=== PATIENT | female | born 1940 | race Caucasian/White ===

== ENCOUNTER → 2023-06-18 08:12 | Outpatient (REF) | payer MEDICARE, SELFPAY | LOC: RAD 08:12 | PROVIDERS: ATTENDING PHYSICIAN Family Medicine | DX: M81.0 Age-related osteoporosis without current pathological fracture (principal) | CPT/HCPCS: 77080 ==

== ENCOUNTER → 2023-07-17 09:34 | Outpatient (REF) | payer MEDICARE, SELFPAY ==
[2023-07-17 10:41] LABS: % Basophils 0.7 % (0-2); % Immature Granulocytes 0.2 % (0-0.5); % Lymphocytes 32.3 % (20.5-51.1); % Monocytes 7.6 % (1.7-9.3); % Neutrophils 58.2 % (42.2-75.2); Absolute Lymphocytes 1.4 10^3/uL (1.2-3.4); Absolute Monocytes 0.3 10^3/uL (0.1-0.6); Absolute Neutrophils 2.5 10^3/uL (1.4-6.5); Hematocrit 36.4 % (37.0-47.0); Hemoglobin 12.3 g/dL (12.0-16.0); Mean Corp Hgb Conc. 33.8 g/dL (33.0-37.0); Mean Corpuscular Hgb 30.8 pg (27.0-31.0); Mean Platelet Volume 10.9 fL (7.4-10.4); Nucleated Red Blood Cells % 0 %; Platelet Count 177 10^3/uL (130-400); Red Cell Dist. Width 12.9 % (11.5-14.5); White Blood Cell Count 4.2 10^3/uL (4.8-10.8)
[2023-07-17 11:26] LABS: Vitamin D, 25-OH*** 64.9 ng/mL (30-80)
[2023-07-17 11:40] LABS: TSH 1.84 uIU/ml (0.47-4.68)
[2023-07-17 12:06] LABS: ALT (SGPT) 15 U/L (0-35); AST (SGOT) 27 U/L (14-36); Albumin 4.3 g/dl (3.5-5.0); Alkaline Phosphatase 88 U/L (38-126); Blood Urea Nitrogen 16 mg/dl (7-17); Calcium 9.6 mg/dl (8.4-10.2); Carbon Dioxide 31 mmol/L (22-30); Chloride 99 mmol/L (98-107); Creatine Phosphokinase 113 U/L (30-135); Glucose 97 mg/dl (70-99); Magnesium 2.1 mg/dl (1.6-2.3); Potassium 4.6 mmol/L (3.5-5.1); Sodium 135 mmol/L (135-145); Total Bilirubin 0.5 mg/dl (0.2-1.3); Total Cholesterol 144 mg/dl (50-199); Total Protein 7.1 g/dl (6.3-8.2); Triglyceride 103 mg/dl (10-149); Very Low Density Lipoprotein 20 mg/dl (0-30); eGFR > 60.00
[2023-07-17 12:12] LABS: HDL Cholesterol 61 mg/dl; LDL Cholesterol, Calculated 63 mg/dl
== END ==
LOC: REG 09:34
PROVIDERS: ATTENDING PHYSICIAN Family Medicine
DX: M81.0 Age-related osteoporosis without current pathological fracture (principal); R53.83 Other fatigue; E78.2 Mixed hyperlipidemia; I10 Essential (primary) hypertension; R53.1 Weakness
CPT/HCPCS: 36415; 80053; 80061; 82306; 82550; 83735; 84443; 85025

== ENCOUNTER → 2023-07-23 09:13 | Outpatient (REF) | payer MEDICARE, SELFPAY | LOC: CLAB 09:13 | PROVIDERS: ATTENDING PHYSICIAN Nurse Practitioner Family | DX: R35.0 Frequency of micturition (principal) | CPT/HCPCS: 87077; 87086; 87186 ==

== ENCOUNTER 2023-08-05 11:21 | Outpatient (RCR) | payer MEDICARE, SELFPAY | END 2023-08-05 23:59 | disposition home or self-care (01) | LOC: RPT 11:21 | PROVIDERS: ATTENDING PHYSICIAN Family Medicine | DX: M17.11 Unilateral primary osteoarthritis, right knee (principal); R53.81 Other malaise; R26.89 Other abnormalities of gait and mobility; R26.2 Difficulty in walking, not elsewhere classified; Z73.6 Limitation of activities due to disability | CPT/HCPCS: 97110; 97162 ==

== ENCOUNTER 2023-09-22 13:48 | Outpatient (RCR) | payer MEDICARE, SELFPAY | END 2023-09-22 23:59 | disposition home or self-care (01) | LOC: RPT 13:48 | PROVIDERS: ATTENDING PHYSICIAN Orthopaedic Surgery; FAMILY PHYSICIAN Family Medicine | DX: M17.11 Unilateral primary osteoarthritis, right knee (principal); R26.89 Other abnormalities of gait and mobility | CPT/HCPCS: 97110; 97162 ==

== ENCOUNTER 2023-10-23 10:07 | Outpatient (RCR) | payer MEDICARE, SELFPAY | END 2023-10-26 06:28 | disposition home or self-care (01) | LOC: RPT 10:07 | PROVIDERS: ATTENDING PHYSICIAN Orthopaedic Surgery; FAMILY PHYSICIAN Family Medicine | DX: M17.11 Unilateral primary osteoarthritis, right knee (principal); R26.89 Other abnormalities of gait and mobility | CPT/HCPCS: 97110 ==

== ENCOUNTER 2023-12-07 12:27 | Emergency (ER) | payer MEDICARE, SELFPAY ==
[2023-12-07 12:34] VITALS: BP 174/149
[2023-12-07 12:50] VITALS: BP 174/149
[2023-12-07 12:54] VITALS: BMI 28.7
[2023-12-07 13:00] VITALS: BP 169/72
[2023-12-07] MEDS: NSS 1000 IV (13:48)
[2023-12-07 13:52] LABS: % Basophils 0.5 % (0-2); % Eosinophils 0.9 % (0-6); % Immature Granulocytes 0.2 % (0-0.5); % Monocytes 7.4 % (1.7-9.3); Absolute Eosinophils 0.1 10^3/uL (0-0.7); Absolute Lymphocytes 1.6 10^3/uL (1.2-3.4); Absolute Monocytes 0.4 10^3/uL (0.1-0.6); Absolute Neutrophils 3.4 10^3/uL (1.4-6.5); Hematocrit 35.4 % (37.0-47.0); Hemoglobin 11.8 g/dL (12.0-16.0); Mean Corp Hgb Conc. 33.3 g/dL (33.0-37.0); Mean Corpuscular Hgb 31.1 pg (27.0-31.0); Mean Corpuscular Volume 93.2 fL (81.0-99.0); Mean Platelet Volume 10.8 fL (7.4-10.4); Nucleated Red Blood Cells % 0 %; Platelet Count 154 10^3/uL (130-400); Red Cell Dist. Width 12.5 % (11.5-14.5); White Blood Cell Count 5.6 10^3/uL (4.8-10.8)
--- NOTE | 2023-12-07 13:52 | ED.CVA ---
History of Present Illness
General
Chief Complaint: CVA/TIA Symptoms
Time Seen by Provider: 12/07/23 12:45
Onset of Stroke Symptoms
Onset of symptoms known: Yes
Date of onset of symptoms: 12/07/23
History of Present Illness
History of Present Illness:
83-year-old female with history of CVA 12 years ago and TIA 5 years ago, hypertension, presenting to the emergency department for strokelike symptoms. Patient reports that she was at physical therapy today for a right knee issue. When she got home
around 11 AM, felt dizzy and had word finding issues. Patient had a freelance interpreter/translator at the house at the time, ambulance was called. Symptoms have since resolved. She currently reports some dry mouth and concern for dehydration, which she is unsure if
contributed to her symptoms. Denies any present weakness, visual changes, numbness or tingling to her extremities. Daughter is at bedside, notes that her speech is normal. She denies chest pain, difficulty breathing, fever, abdominal pain or GI
symptoms or additional acute medical complaints
Past History
Past History
ED Past Medical History: HTN, Hypercholesterolemia, NIDDM, Psychiatric (Major depressive disorder, generalized anxiety disorder) and Other (BPPV, migraine, osteoarthritis, Allergic rhinitis, non-rheumatic aortic valve insufficiency)
ED Past Surgical History: Orthopedic (Left knee arthroscopy, right shoulder adhesion removal) and Tonsilectomy
Social History
Tobacco: Non-smoker
Alcohol: Occasional
Personal:
Living: with family
Employment: Other
Family History
Family History: Other (Reviewed and noncontributory)
Phy Exam
Physical Exam
Physical Exam:
General: Well-appearing, no clinical signs of dehydration, nontoxic and in no acute distress
HEENT: protecting airway
Neck: appears supple
CV: Normal heart rate, regular rhythm, no evidence of cyanosis
Resp: No accessory muscle use, no increased work of breathing, lungs clear to auscultation bilaterally
Abd: Soft and non-distended, no tenderness to palpation
Extremities: No deformities, no swelling, no erythema, pulses and sensation intact
Neuro: alert, no focal neurologic deficit
: deferred
Rectal: deferred
Psych: Normal affect
Skin: Intact
NIH Stroke Score
Level of Consciousness: 0 - Alert
LOC questions: 0-Answers both correctly
LOC Commands: 0-Performs both correctly
Best Gaze: 0-Normal
Visual Hu: 0=Normal, no visual loss
Facial palsy: 0=Normal, symmetrical
Motor - Right Arm: 0=No drift 10 seconds
Motor - Left Arm: 0=No drift 10 seconds
Motor - Right Le-No drift 5 seconds
Motor - Left Le-No drift 5 seconds
Limb Ataxia: 0-Absent
Sensation: 0-Normal
Best Language: 0-No aphasia
Dysarthria: 0-Normal
Extinction and Inattention: 0-No abnormality
Total Score:: 0
Course
Orders/Labs/Results
Orders:
Orders
12/07/23 13:04
0.9% Sodium Chloride 1000 ml [Nss] 1,000 ml IV BOLUS
12/07/23 13:05
CT Head W/o Iv Contrast Urgent
Comment:
Reason For Exam: word finding issue at 11, resolved
12/07/23 13:44
Cardiovascular Evaluation Urgent
Comment: ADD ON
Complete Blood Count/With Diff Urgent
Comprehensive Metabolic Panel Urgent
12/07/23 14:20
CT Head & Neck Angio W/wo IV Urgent
Comment:
Reason For Exam: word finding issue
Orthostatic VS- Treatment ONCE
12/07/23 14:28
Add On- LAB Stat
Tests Added?: Lipid profile
12/07/23 14:34
Urinalysis Reflex To Culture Urgent
Date Specimen was Collected: 12/07/23
Time Specimen was Collected: 14:32
Urine Microscopic Reflex Cult Urgent
Urine Culture Urgent
GALLITO Source: U
Specimen Description:
Date Specimen was Collected: 12/07/23
Time Specimen was Collected: 14:32
12/07/23 15:18
Acetaminophen [Tylenol] 1,000 mg PO NOW STA
Abnormal Lab Results
12/07/23 12/07/23
13:44 14:34
RBC 3.80 L 10^6/uL
(4.20-5.40)
Hgb 11.8 L g/dL
(12.0-16.0)
Hct 35.4 L %
(37.0-47.0)
MCH 31.1 H pg
(27.0-31.0)
MPV 10.8 H fL
(7.4-10.4)
Chloride 97 L mmol/L
(98-107)
Glucose 102 H mg/dl
(70-99)
Leukocyte Esterase Rfl 1+ A
(Negative)
12/07/23 13:44
12/07/23 13:44
Vital Signs
Initial and Last Documented VS:
Initial Vital Signs
Pulse Resp Pulse Ox
65 19 99
12/07/23 12:31 12/07/23 12:31 12/07/23 12:31
Last Documented Vital Signs
Temp Pulse Resp BP Pulse Ox
98.3 F 64 17 173/63 96
12/07/23 12:50 12/07/23 14:15 12/07/23 14:15 12/07/23 14:00 12/07/23 14:15
MDM/Problems Addressed
MDM/Problems Addressed:
83-year-old female with history of prior CVA and TIA presenting to the emergency department for strokelike symptoms. Vital signs on arrival are significant for hypertension.
On exam patient is well-appearing, no acute distress or discomfort. Notes that symptoms started 11 AM, however resolved upon arrival to the hospital. NIH stroke scale is currently 0. Suspected TIA. Will administer IV fluids in the setting of
possible dehydration. Will obtain a CT brain and laboratory analysis and continue to closely observe.
14:00 - CT negative. Will discuss with neurology
14:30 -in discussion with neurology, recommending lipid profile, orthostatics, CT angio and starting on Plavix. Will obtain
17:20 - CT angio shows less than 50% stenosis of the right internal carotid artery less than 50% stenosis bilaterally. In discussion with neurology, not significant. Patient remained stable, feel stable for discharge with close interval follow-up
neurology. Will start on Plavix per neurology recommendations. Also advised follow-up with PCP regarding blood pressure management. Strict return precautions were communicated with patient and daughters at bedside who verbalized understanding
*Critical Care Note
Total Time (30-74mins, 75-104mins- exclusive of procedures): Not Applicable
ED Attending Note
-
Portions of this chart may have been created with voice recognition software.� Occasional wrong word or��sound alike� substitutions may have occurred due to the inherent limitations of voice recognition software.
Discharge Plan
Departure
Patient Disposition: Home (Routine Discharge)
Date of Disposition: 12/07/23
Time of Disposition: 17:28
Patient with high blood pressure during this ER visit?: Yes
Condition: Good
Discharge Problem:
TIA (transient ischemic attack)
Instructions: Transient Ischemic Attack (DC), BLOOD PRESSURE, Hypertention
Prescriptions:
New
clopidogrel [Plavix] 75 mg tablet
75 mg PO DAILY 30 Days Qty: 30 0RF
No Action
amlodipine 2.5 MG tablet
2.5 mg PO DAILY
aspirin 81 MG tablet,delayed release (DR/EC)
81 mg PO DAILY Qty: 30 0RF
metoprolol succinate 100 mg Tablet Extended Release 24 Hr
100 mg PO DAILY
citalopram 20 mg Tablet
20 mg PO DAILY
calcium polycarbophil [FiberCon] 625 mg Tablet
1,250 mg PO DAILY
lisinopril 40 mg Tablet
40 mg PO DAILY
fluticasone propionate [Flonase] 50 mcg/actuation [place],Suspension
1 spray INTRANASAL DAILY PRN (Reason: congestion)
rosuvastatin 20 mg Tablet
20 mg PO DAILY
calcium carbonate-vitamin D3 [Calcium 500 With D] 500 mg-10 mcg (400 unit) Tablet
1 tab PO DAILY
cholecalciferol (vitamin D3) [Vitamin D3] 50 mcg (2,000 unit) Capsule
50 mcg PO DAILY
mecobalamin (vitamin B12) [B12 Active] 1,000 mcg Tablet,Chewable
1,000 mcg PO DAILY
Gemtesa 75 mg Tablet
75 mg PO DAILY
mupirocin 2 % Ointment
1 applic TOPICAL BID
acetaminophen 500 mg Tablet
1,000 mg PO Q6H PRN (Reason: pain)
aspirin 325 mg Tablet
325 mg PO DAILY
Patient Comments:
*
ondansetron HCl [Zofran] 4 mg Tablet
4 mg PO Q6H PRN (Reason: post-op nausea)
Patient Comments:
*
dexamethasone 4 mg Tablet
4 mg PO Q12H
Patient Comments:
*
celecoxib 100 mg Capsule
100 mg PO BID
Patient Comments:
*
oxycodone 5 mg Tablet
5 - 10 mg PO Q6H PRN (Reason: post-op pain)
Patient Comments:
*
Referrals:
Lindsey Mars MD [Family Provider] -
Kevin Bush III, MD [Active] - (carotid stenosis)
Nabeel Sher MD [Active] - (TIA)
Activity Restrictions/Additional Instructions:
You were seen in the emergency department for episode of difficulty speaking which is since resolved.
Had a normal CT of your brain and arteries of your brain and neck. There was some stenosis to your carotids. Please follow-up with the vascular surgeon. We suspect that you had a transient ischemic attack, and should follow-up with a neurologist.
You were started on Plavix
Please follow-up closely with your primary care physician regarding your blood pressure, which has been elevated in the emergency.
Return to the emergency department for any worsening of your symptoms, or any development of chest pain, difficulty breathing, abdominal pain with persistent vomiting and inability to tolerate food or liquid by mouth (concern for dehydration),
weakness or numbness to your extremities, headache or confusion, difficulty speaking, fever greater than 100.4, or any additional symptoms that are concerning to you.
Thank you for choosing [facility].
Interventions
Interventions:
*Risk Screen - Suicide Last Done: 12/07/23 12:55
*General Assessment Last Done: 12/07/23 12:56
*Neglect/Abuse Screening Last Done: 12/07/23 12:55
*Nursing Disposition Last Done: 12/07/23 18:04
ED- Pulmonary Assessment Last Done: 12/07/23 12:54
ED- Neurological Assessment Last Done: 12/07/23 12:52
ED- Cardiac Assessment Last Done: 12/07/23 12:54
ED Swallowing Screen Last Done: 12/07/23 12:52
Discharge Date and Time
Discharge Date/Time: 12/07/23 18:05
Print Language: TURKMEN
[2023-12-07 14:00] VITALS: BP 173/63
[2023-12-07 14:16] LABS: ALT (SGPT) 13 U/L (0-35); AST (SGOT) 27 U/L (14-36); Albumin 4.4 g/dl (3.5-5.0); Alkaline Phosphatase 81 U/L (38-126); Blood Urea Nitrogen 17 mg/dl (7-17); Calcium 9.3 mg/dl (8.4-10.2); Carbon Dioxide 27 mmol/L (22-30); Chloride 97 mmol/L (98-107); Estimated Creatinine Clearance 69 ml/min; Glucose 102 mg/dl (70-99); Potassium 4.3 mmol/L (3.5-5.1); Sodium 135 mmol/L (135-145); Total Bilirubin 0.5 mg/dl (0.2-1.3); Total Protein 6.8 g/dl (6.3-8.2); eGFR > 60.00
[2023-12-07 14:43] LABS: HDL Cholesterol 50 mg/dl; LDL Cholesterol, Calculated 67 mg/dl; Total Cholesterol 140 mg/dl (50-199); Triglyceride 116 mg/dl (10-149); Very Low Density Lipoprotein 23 mg/dl (0-30)
[2023-12-07 15:16] LABS: Urine Albumin Negative (Neg - Trace); Urine Bilirubin Negative (Negative); Urine Character Clear (Clear); Urine Color Yellow; Urine Glucose Negative (Negative); Urine Ketone Negative (Negative); Urine Leukocyte 1+ (Negative); Urine Nitrite Negative (Negative); Urine Occult Blood Negative (Negative); Urine Urobilinogen Negative (Neg - 1+)
[2023-12-07 15:19] VITALS: BP 188/57; BP 190/67; BP 196/74; PULSE 66; PULSE 67; PULSE 80
[2023-12-07] MEDS: TYLENOL 1000 MG PO (15:24)
[2023-12-07 15:32] LABS: Urine Red Blood Cell 0-2 /HPF (0-2)
== END 2023-12-07 18:05 | disposition home or self-care (01) ==
LOC: EMR 12:27
PROVIDERS: EMERGENCY PHYSICIAN Student in an Organized Health Care Education/Training Program; FAMILY PHYSICIAN Family Medicine
DX: G45.9 Transient cerebral ischemic attack, unspecified (principal); I10 Essential (primary) hypertension; E78.00 Pure hypercholesterolemia, unspecified; E11.9 Type 2 diabetes mellitus without complications; F41.8 Other specified anxiety disorders; I35.1 Nonrheumatic aortic (valve) insufficiency; M19.90 Unspecified osteoarthritis, unspecified site; Z79.02 Long term (current) use of antithrombotics/antiplatelets
CPT/HCPCS: 99284; 96360; 70450; 70496; 70498; 80053; 80061; 81003; 81015; 85025; 87086; Q9967

== ENCOUNTER 2023-12-10 00:28 | Emergency (ER) | payer MEDICARE, SELFPAY ==
[2023-12-10 00:33] VITALS: BP 181/62
[2023-12-10 00:42] VITALS: BMI 27.5
--- NOTE | 2023-12-10 00:47 | ED.GENMED ---
History of Present Illness
General
Chief Complaint: Dizziness
Source: patient, family (son Rafita) and ambulance crew
Exam Limitations: none
Time Seen by Provider: 12/10/23 00:38
Nursing documentation reviewed up to this point in time: agreed with
History of Present Illness
History of Present Illness:
83-year-old female presents emergency department complaining of intermittent dizziness. On Thursday she was diagnosed with TIA. She was started on Plavix and aspirin was continued. Her dizziness is intermittent. It started at 1130. She denies
symptoms at this time.
Past History
Past History
ED Past Medical History: HTN, Hypercholesterolemia, NIDDM, Psychiatric (Major depressive disorder, generalized anxiety disorder) and Other (BPPV, migraine, osteoarthritis, Allergic rhinitis, non-rheumatic aortic valve insufficiency)
ED Past Surgical History: Orthopedic (Left knee arthroscopy, right shoulder adhesion removal) and Tonsilectomy
Social History
Tobacco: Non-smoker
Alcohol: Occasional
Personal:
Living: with family
Employment: Other
Family History
Family History: Other (Reviewed and noncontributory)
Review of Systems
Review of Systems
Allergies reviewed?: Yes
All Other Systems: Not applicable
Constitutional: Reports no symptoms
EENT: Reports no symptoms
Respiratory: Reports no symptoms
Cardiac: Reports no symptoms
ABD/GI: Reports no symptoms
: Reports no symptoms
Musculoskeletal: Reports no symptoms
Skin: Reports no symptoms
Neurological: Reports dizzy
Endocrine: Reports no symptoms
Hematologic/Lymphatic: Reports no symptoms
Psychiatric: Reports no symptoms
Phy Exam
Physical Exam
Physical Exam:
Physical Exam
General: no apparent distress, not acutely ill
Neck: supple. no meningeal signs. normal posterior pharynx
Heart: s1/s2 regular rate and rhythm, no murmur. equal radial
pulses.
HEENT: Pupils equal round reactive to light, EOMI
Lungs: no acute respiratory distress. clear bilaterally
Abdomen: normal bowel sounds. not tender. no CVAT
Neuro: alert and oriented. no focal neurological deficits cranial nerves II through XII intact
Skin: no rash
Psychiatric: well kept. interactive and cooperative
Extremities: no edema. no calf tenderness. negative homans. good distal pulses
NIH Stroke Score
Level of Consciousness: 0 - Alert
LOC questions: 0-Answers both correctly
LOC Commands: 0-Performs both correctly
Best Gaze: 0-Normal
Visual Hu: 0=Normal, no visual loss
Facial palsy: 0=Normal, symmetrical
Motor - Right Arm: 0=No drift 10 seconds
Motor - Left Arm: 0=No drift 10 seconds
Motor - Right Le-No drift 5 seconds
Motor - Left Le-No drift 5 seconds
Limb Ataxia: 0-Absent
Sensation: 0-Normal
Best Language: 0-No aphasia
Dysarthria: 0-Normal
Extinction and Inattention: 0-No abnormality
Total Score:: 0
Alteplase Contraindication
Reasons for NON-Treatment with Thrombolytics: Rapid improvement and Other (NIH 0)
[place] Coma Scale
Eye Opening: Spontaneous
Verbal Response: Oriented
Motor Response: Obeys Commands
GCS Total Score: 15
Scores
NIH Stroke Score
Level of Consciousness: 0 - Alert
LOC Questions: 0-Answers both correctly
LOC Commands: 0-Performs both correctly
Best Horizontal Gaze: 0-Normal
Visual Hu: 0=Normal, no visual loss
Facial Palsy: 0=Normal, symmetrical
Motor - Right Arm: 0=No drift 10 seconds
Motor - Left Arm: 0=No drift 10 seconds
Motor - Right Le-No drift 5 seconds
Motor - Left Le-No drift 5 seconds
Limb Ataxia: 0-Absent
Sensation: 0-Normal
Best Language: 0-No aphasia
Dysarthria: 0-Normal
Extinction and Inattention: 0-No abnormality
Total Score:: 0
Thrombolytic Contraindication
Inclusion and Exclusion criteria reviewed: Yes
Reasons for NON-Tx with Thrombolytics ABSOLUTE Exclusions: Greater than 4.5 hrs from onset of sxs
Course
Orders/Labs/Results
Orders:
Orders
12/10/23 00:29
Electrocardiogram (*1) Urgent
Reason for Study: Other
Other Reason for Exam: Possible Stroke
Bedside Glucose- Treatment ONCE
Cardiac Monitoring- Treatment ONCE
IV Insert/Care/Rem.- Treatment PRN
Vital Signs As Directed
Frequency: Other
Weight As Directed
Frequency: Once
Comment: ZERO STRETCHER SCALE FOR ACCURATE WEIGHT
O2 Therapy [RESP] Urgent
Titrate/Wean O2 to maintain O2 sat greater than (%): 93
Special Instructions: MAINTAIN CONTINUOUS O2 SATS > OR = 93%
12/10/23 00:30
EKG- Treatment ONCE
12/10/23 00:40
Complete Blood Count/With Diff Urgent
Comprehensive Metabolic Panel Urgent
Troponin I Urgent
12/10/23 00:46
CT Head W/o Iv Contrast Urgent
Comment:
Reason For Exam: dizziness
EKG- Treatment ONCE
12/10/23 00:47
Electrocardiogram (*1) Urgent
Reason for Study: Vertigo / Dizzy
Abnormal Lab Results
12/10/23 12/10/23
00:40 00:47
RBC 3.72 L 10^6/uL
(4.20-5.40)
Hgb 11.2 L g/dL
(12.0-16.0)
Hct 32.5 L %
(37.0-47.0)
MPV 11.3 H fL
(7.4-10.4)
BUN 24 H mg/dl
(7-17)
Glucose 106 H mg/dl
(70-99)
POC Glucose 114 H mg/dl
(70-99)
12/10/23 00:40
12/10/23 00:40
Vital Signs
Initial and Last Documented VS:
Initial Vital Signs
Temp Pulse Resp Pulse Ox
98.4 F 67 19 96
12/10/23 00:30 12/10/23 00:30 12/10/23 00:30 12/10/23 00:30
Last Documented Vital Signs
Temp Pulse Resp BP Pulse Ox
98.4 F 74 22 170/61 98
12/10/23 00:30 12/10/23 01:05 12/10/23 01:05 12/10/23 01:04 12/10/23 01:05
MDM/Problems Addressed
Differential Diagnosis Includes:
CVA, TIA
MDM/Problems Addressed:
83-year-old female with intermittent dizziness, unclear etiology. Doubt CVA. No neurologic deficits. Stable for discharge and primary care and neurology follow-up
Chronic conditions affecting care: HTN and Cardiomyopathy
Acute Exacerbation and/or Progression of Chronic Illness: HTN and Cardiomyopathy
*Radiology
Radiology exam reviewed: radiology read reviewed (CT head no acute findings)
*Pulse Oximetry
Patient hypoxic: no
*EKG
Interpreted by ED Provider?: Yes
EKG Intrepretation Date: 12/10/23
EKG Intrepretation Time: 00:52
Interpretation: normal
Comparison EKG: no changes
Heart Rate: 66
Rate: normal
Rhythm: sinus
[place]: normal axis
Interval: normal interval
QRS Pattern: normal QRS
Ischemia: no ischemia
*Casing In Line Feeder Interpretation
Rate: normal
Interpretation: normal
Heart Rate: 62
Rhythm: sinus
*Critical Care Note
Total Time (30-74mins, 75-104mins- exclusive of procedures): Not Applicable
Data Reviewed
Review of Other/Old Records Reveals: Radiology Studies (CTA from recent evaluation no acute findings on 12/07/2023)
Source: records and previous radiology exam
Prescriptions/Medications Considered But Not Given:
IAT and TNK not indicated
Patient Management
Social determinants of health affecting care: Living situation
Escalation/DeEscalation of care consider admission/obs:
Admit not indicated
ED Attending Note
-
Portions of this chart may have been created with voice recognition software.� Occasional wrong word or��sound alike� substitutions may have occurred due to the inherent limitations of voice recognition software.
Discharge Plan
Departure
Patient Disposition: Home (Routine Discharge)
Date of Disposition: 12/10/23
Time of Disposition: 02:21
Patient with high blood pressure during this ER visit?: Yes
Condition: Good
Discharge Problem:
Dizziness
Instructions: Dizziness, BLOOD PRESSURE
Prescriptions:
No Action
amlodipine 2.5 MG tablet
2.5 mg PO DAILY
aspirin 81 MG tablet,delayed release (DR/EC)
81 mg PO DAILY Qty: 30 0RF
metoprolol succinate 100 mg Tablet Extended Release 24 Hr
100 mg PO DAILY
citalopram 20 mg Tablet
20 mg PO DAILY
calcium polycarbophil [FiberCon] 625 mg Tablet
1,250 mg PO DAILY
lisinopril 40 mg Tablet
40 mg PO DAILY
fluticasone propionate [Flonase] 50 mcg/actuation [place],Suspension
1 spray INTRANASAL DAILY PRN (Reason: congestion)
rosuvastatin 20 mg Tablet
20 mg PO DAILY
calcium carbonate-vitamin D3 [Calcium 500 With D] 500 mg-10 mcg (400 unit) Tablet
1 tab PO DAILY
cholecalciferol (vitamin D3) [Vitamin D3] 50 mcg (2,000 unit) Capsule
50 mcg PO DAILY
mecobalamin (vitamin B12) [B12 Active] 1,000 mcg Tablet,Chewable
1,000 mcg PO DAILY
Gemtesa 75 mg Tablet
75 mg PO DAILY
mupirocin 2 % Ointment
1 applic TOPICAL BID
acetaminophen 500 mg Tablet
1,000 mg PO Q6H PRN (Reason: pain)
aspirin 325 mg Tablet
325 mg PO DAILY
Patient Comments:
*
ondansetron HCl [Zofran] 4 mg Tablet
4 mg PO Q6H PRN (Reason: post-op nausea)
Patient Comments:
*
dexamethasone 4 mg Tablet
4 mg PO Q12H
Patient Comments:
*
celecoxib 100 mg Capsule
100 mg PO BID
Patient Comments:
*
oxycodone 5 mg Tablet
5 - 10 mg PO Q6H PRN (Reason: post-op pain)
Patient Comments:
*
clopidogrel [Plavix] 75 mg tablet
75 mg PO DAILY 30 Days Qty: 30 0RF
Referrals:
Nabeel Sher MD [Family Provider] - Keep scheduled appt
Activity Restrictions/Additional Instructions:
Follow-up with primary care today as scheduled.
Interventions
Interventions:
*Risk Screen - Suicide Last Done: 12/10/23 00:30
*General Assessment Last Done: 12/10/23 00:30
*Neglect/Abuse Screening Last Done: 12/10/23 00:30
*ED COVID-19 Vaccine History Last Done: 12/10/23 00:30
ED- Neurological Assessment Last Done: 12/10/23 00:48
ED- Cardiac Assessment Last Done: 12/10/23 00:48
ED Swallowing Screen Last Done: 12/10/23 00:52
Discharge Date and Time
Print Language: SETS[place]
[2023-12-10 00:48] LABS: Glucose - Point of Care 114 mg/dl (70-99)
[2023-12-10 00:58] LABS: % Basophils 0.6 % (0-2); % Immature Granulocytes 0.2 % (0-0.5); % Lymphocytes 40.6 % (20.5-51.1); % Monocytes 8.3 % (1.7-9.3); % Neutrophils 49.3 % (42.2-75.2); Absolute Eosinophils 0.1 10^3/uL (0-0.7); Absolute Monocytes 0.4 10^3/uL (0.1-0.6); Absolute Neutrophils 2.4 10^3/uL (1.4-6.5); Hematocrit 32.5 % (37.0-47.0); Hemoglobin 11.2 g/dL (12.0-16.0); Mean Corp Hgb Conc. 34.5 g/dL (33.0-37.0); Mean Corpuscular Hgb 30.1 pg (27.0-31.0); Mean Corpuscular Volume 87.4 fL (81.0-99.0); Mean Platelet Volume 11.3 fL (7.4-10.4); Nucleated Red Blood Cells % 0 %; Platelet Count 163 10^3/uL (130-400); Red Blood Cell Count 3.72 10^6/uL (4.20-5.40); Red Cell Dist. Width 12.4 % (11.5-14.5); White Blood Cell Count 4.8 10^3/uL (4.8-10.8)
[2023-12-10 01:03] LABS: ALT (SGPT) 16 U/L (0-35); AST (SGOT) 36 U/L (14-36); Albumin 4.2 g/dl (3.5-5.0); Alkaline Phosphatase 91 U/L (38-126); Blood Urea Nitrogen 24 mg/dl (7-17); Calcium 9.3 mg/dl (8.4-10.2); Carbon Dioxide 24 mmol/L (22-30); Chloride 100 mmol/L (98-107); Estimated Creatinine Clearance 51 ml/min; Glucose 106 mg/dl (70-99); Potassium 4.3 mmol/L (3.5-5.1); Sodium 137 mmol/L (135-145); Total Bilirubin 0.4 mg/dl (0.2-1.3); Total Protein 6.8 g/dl (6.3-8.2); eGFR > 60.00
[2023-12-10 01:04] VITALS: BP 170/61
[2023-12-10 01:15] LABS: Troponin I < 0.012 ng/ml
== END 2023-12-10 02:33 | disposition home or self-care (01) ==
LOC: EMR 00:28
PROVIDERS: EMERGENCY PHYSICIAN Emergency Medicine; FAMILY PHYSICIAN Psychiatry & Neurology Neurology
DX: R42 Dizziness and giddiness (principal); E11.9 Type 2 diabetes mellitus without complications; E78.00 Pure hypercholesterolemia, unspecified; Z86.73 Personal history of transient ischemic attack (TIA), and cerebral infarction without residual deficits; I10 Essential (primary) hypertension; Z79.02 Long term (current) use of antithrombotics/antiplatelets; Z79.82 Long term (current) use of aspirin
CPT/HCPCS: 99284; 70450; 80053; 82962; 84484; 85025; 93005

== ENCOUNTER → 2024-03-04 09:54 | Outpatient (REF) | payer MEDICARE, SELFPAY ==
[2024-03-04 13:39] LABS: VerifyNow Aspirin 552 ARU
== END ==
LOC: RCS 09:54
PROVIDERS: ATTENDING PHYSICIAN Internal Medicine Cardiovascular Disease; FAMILY PHYSICIAN Family Medicine; REFERRING PHYSICIAN Specialist
DX: I35.1 Nonrheumatic aortic (valve) insufficiency (principal); I10 Essential (primary) hypertension
CPT/HCPCS: 36415; 85576; 93306

== ENCOUNTER 2024-04-11 18:15 | Observation (INO) | payer MEDICARE, SELFPAY ==
[2024-04-11] VITALS (10 sets, daily range): BP systolic 153–178; BP diastolic 52–108; BMI 29.5; BMI 28.1
[2024-04-11 14:29] LABS: % Basophils 0.4 % (0-2); % Eosinophils 0.5 % (0-6); % Immature Granulocytes 0.4 % (0-0.5); % Lymphocytes 25.1 % (20.5-51.1); % Monocytes 5.2 % (1.7-9.3); % Neutrophils 68.4 % (42.2-75.2); Absolute Lymphocytes 1.4 10^3/uL (1.2-3.4); Absolute Monocytes 0.3 10^3/uL (0.1-0.6); Absolute Neutrophils 3.8 10^3/uL (1.4-6.5); Hematocrit 36.4 % (37.0-47.0); Mean Corpuscular Hgb 30.2 pg (27.0-31.0); Mean Corpuscular Volume 91.5 fL (81.0-99.0); Nucleated Red Blood Cells % 0 %; Platelet Count 138 10^3/uL (130-400); Red Blood Cell Count 3.98 10^6/uL (4.20-5.40); Red Cell Dist. Width 12.2 % (11.5-14.5); White Blood Cell Count 5.5 10^3/uL (4.8-10.8)
[2024-04-11 14:38] LABS: ALT (SGPT) 15 U/L (0-35); AST (SGOT) 26 U/L (14-36); Albumin 4.5 g/dl (3.5-5.0); Alkaline Phosphatase 83 U/L (38-126); Blood Urea Nitrogen 12 mg/dl (7-17); Calcium 9.4 mg/dl (8.4-10.2); Carbon Dioxide 29 mmol/L (22-30); Chloride 95 mmol/L (98-107); Estimated Creatinine Clearance 65 ml/min; Glucose 103 mg/dl (70-99); Potassium 4.1 mmol/L (3.5-5.1); Sodium 132 mmol/L (135-145); Total Bilirubin 0.4 mg/dl (0.2-1.3); Total Protein 7.2 g/dl (6.3-8.2); eGFR > 60.00
--- NOTE | 2024-04-11 15:36 | ED.CVA ---
History of Present Illness
General
Chief Complaint: CVA/TIA Symptoms
Source: patient and family
Time Seen by Provider: 04/11/24 13:57
Onset of Stroke Symptoms
Onset of symptoms known: Yes
Date of onset of symptoms: 04/11/24
History of Present Illness
History of Present Illness:
This an 83-year-old female presents after she had an episode of aphasia at home. Patient states that started around 1030 but admits that she did not really speak prior to that. Family noticed that and her daughter adds that she had difficulty
getting her words out. Symptoms lasted 20 to 40 minutes and resolved. Patient admits that prior to this she did have a loss of vision in the right periphery. She only noticed in her right eye. She denies headache. Denies motor weakness. No
tingling. Now symptoms are resolved. She really did not want to come to the hospital and in fact went to physical therapy. She then called her primary who advised her to come to the hospital. She has a history of TIA and is on Plavix.
Past History
Past History
ED Past Medical History: CVA, HTN, Hypercholesterolemia, NIDDM, Psychiatric (Major depressive disorder, generalized anxiety disorder) and Other (BPPV, migraine, osteoarthritis, Allergic rhinitis, non-rheumatic aortic valve insufficiency)
ED Past Surgical History: Orthopedic (Left knee arthroscopy, right shoulder adhesion removal) and Tonsilectomy
Social History
Tobacco: Non-smoker
Alcohol: Occasional
Personal:
Living: with family
Employment: Other
Family History
Family History: Other (Reviewed and noncontributory)
Phy Exam
Physical Exam
Physical Exam:
CONSTITUTIONAL Patient alert and oriented to person, place and time. Well-appearing. Vital signs reviewed.
HEAD atraumatic, normocephalic.
EYES eyelids normal to inspection, Extraocular muscles intact, Conjunctiva normal, Sclera normal.
NECK normal range of motion, Trachea midline, no jugular venous distention.
RESPIRATORY CHEST No respiratory distress noted, Chest expansion equal, Bilateral breath sounds clear.
CARDIOVASCULAR regular rate and rhythm, Heart sounds normal.
ABDOMEN abdomen nontender, Bowel sounds normal. No distention.
BACK normal inspection, no obvious deformities
UPPER EXTREMITY range of motion normal, Motor strength normal, no cyanosis, no edema.
LOWER EXTREMITY range of motion normal, Motor strength normal, no cyanosis, no edema.
NEURO Speech normal, No focal motor deficits, Rebel coma scale 15, Memory normal, Cranial Nerves intact to screening exam. Normal [id number]. No pronator drift.
SKIN skin warm, dry, and normal in color.
Course
Orders/Labs/Results
Orders:
Orders
04/11/24 13:07
Electrocardiogram (*1) Urgent
Reason for Study: TIA/Stroke
CT Head W/o Iv Contrast Urgent
Comment: hx tia
Reason For Exam: diff finding words at 1030 am, has resolved
EKG- Treatment ONCE
04/11/24 14:17
Complete Blood Count/With Diff Urgent
Comprehensive Metabolic Panel Urgent
Abnormal Lab Results
04/11/24
14:17
RBC 3.98 L 10^6/uL
(4.20-5.40)
Hct 36.4 L %
(37.0-47.0)
MPV 12.0 H fL
(7.4-10.4)
Sodium 132 L mmol/L
(135-145)
Chloride 95 L mmol/L
(98-107)
Glucose 103 H mg/dl
(70-99)
04/11/24 14:17
04/11/24 14:17
Vital Signs
Initial and Last Documented VS:
Initial Vital Signs
Temp Pulse Resp BP Pulse Ox
98.0 F 66 16 165/65 98
04/11/24 13:02 04/11/24 13:02 04/11/24 13:02 04/11/24 13:02 04/11/24 13:02
Last Documented Vital Signs
Temp Pulse Resp BP Pulse Ox
98.0 F 69 25 159/108 98
04/11/24 13:02 04/11/24 15:15 04/11/24 15:15 04/11/24 15:00 04/11/24 14:30
MDM/Problems Addressed
Differential Diagnosis Includes:
TIA, seizure, uncontrolled hypertension, hypertensive emergency, electrolyte imbalance
MDM/Problems Addressed:
TIA, uncontrolled hypertension
*Radiology
Radiology exam reviewed: radiology read reviewed
*Pulse Oximetry
Patient hypoxic: no
*EKG
Interpreted by ED Provider?: Yes
Interpretation: normal
Rate: normal
Rhythm: sinus
Kellogg: normal axis
Interval: normal interval
Ischemia: no ischemia
*Grit Blaster Interpretation
Rate: normal
Interpretation: normal
Rhythm: sinus
*Critical Care Note
Total Time (30-74mins, 75-104mins- exclusive of procedures): Not Applicable
Data Reviewed
Review of Other/Old Records Reveals: Radiology Studies (Head and neck CTA reviewed from November 2023)
Source: patient and family
Prescriptions/Medications Considered But Not Given:
Consider TNK but symptoms have resolved
Patient Management
Discussion with other providers: Hospitalist and Documentation Specialist
Escalation/DeEscalation of care consider admission/obs:
Case discussed with neurology
Recurrent episode of TIA. Discussed with neurology who recommends admission. Stable now and nonfocal exam.
ED Attending Note
-
Portions of this chart may have been created with voice recognition software.� Occasional wrong word or��sound alike� substitutions may have occurred due to the inherent limitations of voice recognition software.
Discharge Plan
Departure
Patient Disposition: Admit
Date of Disposition: 04/11/24
Time of Disposition: 16:21
Presentation/result/management discussed w/ accepting MD/DO: Hospitalist
Discharge Problem:
TIA (transient ischemic attack)
Prescriptions:
No Action
amlodipine 2.5 MG tablet
2.5 mg PO DAILY
aspirin 81 MG tablet,delayed release (DR/EC)
81 mg PO DAILY Qty: 30 0RF
metoprolol succinate 100 mg Tablet Extended Release 24 Hr
100 mg PO DAILY
citalopram 20 mg Tablet
20 mg PO DAILY
calcium polycarbophil [FiberCon] 625 mg Tablet
1,250 mg PO DAILY
lisinopril 40 mg Tablet
40 mg PO DAILY
fluticasone propionate [Flonase] 50 mcg/actuation [place],Suspension
1 spray INTRANASAL DAILY PRN (Reason: congestion)
rosuvastatin 20 mg Tablet
20 mg PO DAILY
calcium carbonate-vitamin D3 [Calcium 500 With D] 500 mg-10 mcg (400 unit) Tablet
1 tab PO DAILY
cholecalciferol (vitamin D3) [Vitamin D3] 50 mcg (2,000 unit) Capsule
50 mcg PO DAILY
mecobalamin (vitamin B12) [B12 Active] 1,000 mcg Tablet,Chewable
1,000 mcg PO DAILY
Gemtesa 75 mg Tablet
75 mg PO DAILY
mupirocin 2 % Ointment
1 applic TOPICAL BID
acetaminophen 500 mg Tablet
1,000 mg PO Q6H PRN (Reason: pain)
aspirin 325 mg Tablet
325 mg PO DAILY
Patient Comments:
*
ondansetron HCl [Zofran] 4 mg Tablet
4 mg PO Q6H PRN (Reason: post-op nausea)
Patient Comments:
*
dexamethasone 4 mg Tablet
4 mg PO Q12H
Patient Comments:
*
celecoxib 100 mg Capsule
100 mg PO BID
Patient Comments:
*
oxycodone 5 mg Tablet
5 - 10 mg PO Q6H PRN (Reason: post-op pain)
Patient Comments:
*
clopidogrel [Plavix] 75 mg tablet
75 mg PO DAILY 30 Days Qty: 30 0RF
Referrals:
Angelica Diez MD [Family Provider] -
Interventions
Interventions:
*Risk Screen - Suicide Last Done: 04/11/24 13:02
*General Assessment Last Done: 04/11/24 14:28
*Neglect/Abuse Screening Last Done: 04/11/24 13:02
ED- Fall Risk Assessment Last Done: 04/11/24 14:28
*ED COVID-19 Vaccine History Last Done: 04/11/24 14:28
ED- Pulmonary Assessment Last Done: 04/11/24 14:28
ED- Neurological Assessment Last Done: 04/11/24 14:28
ED- Cardiac Assessment Last Done: 04/11/24 14:28
Discharge Date and Time
Print Language: THAI
--- NOTE | 2024-04-11 16:29 | CON.NEURO ---
Consultation
Order
Date of Consultation: 04/11/24
Requesting Provider: Jason Ribeiro DO
Reason for Consult: TIA
Neurology Consultation Note.
HPI: This is an 83-year-old woman who presented to [facility] on 04/11/2024 with transient aphasia. According to the patient she had transient gibberish speech lasting for 20 minutes early in the morning. About an hour after the
speech dysfunction, the patient experienced numbness in her right hand, lasting for 5 minutes and affecting I-II of the digits.
Ms. Thornton states that she had similar symptoms about a month and a half ago and was started on Plavix in addition to aspirin by her PCP. She then transition to monotherapy with Plavix based on her group marketing vp recommendation.The patient admits to
occasionally forgetting to take her medications but usually remembers to take them later in the day.
Ms. Thornton was seen at [facility] in 2019 with transient difficulties with speech and right hand tingling. Brain MRI at that time showed no acute infarcts
ER VS: 165/65, 66, afebrile
EKG: NSR
PDMP:Oxycodone Hcl (Ir) 5 Mg 30 tablets filled in on 10/30/2023
Labs: Glucose�114, sodium�132, normal WBCs, platelets�138.
CT head wo contrast(04/11/2024)-chronic left thalamic infarct.
TTE(03/04/2024) Interatrial septum is intact with no evidence of shunting by color flow Doppler. No intracardiac mass or thrombus formation seen.
Brain MRI (07/20/19 19)�chronic left thalamic infarct.
MRA head/neck(2019)-Variant [place] anatomy where the right carotid system supplies both anterior cerebral arteries. Incomplete [place]; absent posterior communicating arteries.
PMH: Stroke (2010) TIA (right hand tingling, difficulties with speech, 2019), hypertension, dyslipidemia, glucose intolerance, L4 compression fracture, DIANE, MDD, vitamin D deficiency, overactive bladder, osteoporosis, osteoarthritis, BPPV, migraine
headaches,
PSH: Left knee and right shoulder arthroscopies, tonsillectomy, bilateral cataract surgery
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
All:Lactase
ROS: Constitutional: Negative. Negative for chills, fever and unexpected weight change.
HENT: Positive for chronic hearing impairment
Eyes: Negative. Negative for photophobia, pain and visual disturbance.
Respiratory: Negative for cough, choking and shortness of breath.
Cardiovascular: Negative for chest pain, palpitations and leg swelling.
Gastrointestinal: Negative for abdominal pain and vomiting.
Endocrine: Negative. Negative for cold intolerance.
Genitourinary: Negative for dysuria, flank pain and urgency.
Musculoskeletal: Positive for arthralgias, right knee pain
Skin: Negative for rash.
Allergic/Immunologic: Negative. Negative for immunocompromised state.
Neurological: Positive for transient aphasia and intermittent right hand numbness
Psychiatric/Behavioral: Positive for anxiety
General: Well developed. In no acute distress.
Cardio: Regular rate and rhythm without murmur. Extremities are without cyanosis or edema.
Neuro:
Mental Status: Alert, oriented to person, place, and date. Mildly impaired attention (hearing impairment?)l. Good fund of knowledge. Follows complex requests across the midline. Comprehension, naming, and repetition intact. Anxious mood.
Cranial Nerves: Pupils are equally round, surgical. EOMs full. Visual reddy full to confrontation. No ptosis. No nystagmus. V1-V3 intact to light touch and pinprick bilaterally, symmetric. Face symmetric. Poor hearing AU. The palate
elevated well. SCMs and traps 5/5. Tongue midline. No dysarthria.
Motor: Normal bulk and tone. No pronator or arm drift. Strength 5/5 throughout. No clonus.
Reflexes: Positive for bilateral grasp
Sensory: Normal light touch
Coordination: Mild action tremor, no dysmetria.
Gait: deferred
Assessment and Plan:
I. TIA or recrudescence of pre-existing deficits from chronic left thalamic infarct
II. Hypertension
III. DIANE
-Continue Telemetry monitoring.
-Continue ASA 81 mg QD and Plavix 75 mg QD
-Brain MRI wo diane
-Please check HbA1C, LDL, TFTs
-Obtain medical records from patient's PCP
-May consider EEG due to stereotyped nature of the events events
-OP NCS/EMG of RUE
-DVT prophylaxis.
I personally reviewed all radiology and labs along with past medical records pertinent to current medical problems. Total time spent in patient care is 60 minutes.
Thank you for allowing us to participate in the care of this patient. We will continue to follow. Please do not hesitate to contact us with any questions or concerns.
Subjective/Objective
Subjective Data
Date of Service: April 11, 2024
Objective Data
Vital Signs
Temp Pulse Resp BP Pulse Ox
36.7 C 69 25 159/108 98
04/11/24 13:02 04/11/24 15:15 04/11/24 15:15 04/11/24 15:00 04/11/24 14:30
Lab Results
04/11/24 14:17
04/11/24 14:17
Sodium 132 mmol/L (135-145) L 04/11/24 14:17
Potassium 4.1 mmol/L (3.5-5.1) 04/11/24 14:17
BUN 12 mg/dl (7-17) 04/11/24 14:17
Glucose 103 mg/dl (70-99) H 04/11/24 14:17
Calcium 9.4 mg/dl (8.4-10.2) 04/11/24 14:17
Patient Allergies
latex [Latex] Allergy (Mild, Verified 04/11/24 13:06)
Rash
lactase [From Lactaid] Allergy (Verified 04/11/24 13:06)
gi upset
Medications
-
Home Medications
�Medication �Instructions �Recorded
amlodipine 2.5 mg tablet 2.5 mg PO DAILY 07/18/18
aspirin 81 mg tablet,delayed 81 mg PO DAILY ##30 07/19/18
release
calcium 500 mg (as 1 tab PO DAILY 10/28/23
carbonate)-vitamin D3 10 mcg (400
unit) tablet (Calcium 500 With D)
calcium polycarbophil 625 mg 1,250 mg PO DAILY 10/28/23
tablet (FiberCon)
cholecalciferol (vitamin D3) 50 50 mcg PO DAILY 10/28/23
mcg (2,000 unit) capsule (Vitamin
D3)
citalopram 20 mg tablet 20 mg PO DAILY 10/28/23
fluticasone propionate 50 1 spray intranasal DAILY PRN 10/28/23
mcg/actuation nasal congestion
spray,suspension
lisinopril 40 mg tablet 40 mg PO DAILY 10/28/23
mecobalamin (vitamin B12) 1,000 1,000 mcg PO DAILY 10/28/23
mcg chewable tablet (B12 Active)
metoprolol succinate 100 mg 100 mg PO DAILY 10/28/23
tablet,extended release 24 hr
mupirocin 2 % topical ointment 1 applic topical BID 10/28/23
rosuvastatin 20 mg tablet 20 mg PO DAILY 10/28/23
vibegron 75 mg tablet (Gemtesa) 75 mg PO DAILY 10/28/23
acetaminophen 500 mg tablet 1,000 mg PO Q6H PRN pain 10/29/23
aspirin 325 mg tablet 325 mg PO DAILY post-op 10/30/23
celecoxib 100 mg capsule 100 mg PO BID post-op 10/30/23
dexamethasone 4 mg tablet 4 mg PO Q12H post-op; for 3 days 10/30/23
ondansetron HCl 4 mg tablet 4 mg PO Q6H PRN post-op nausea 10/30/23
oxycodone 5 mg tablet 5 - 10 mg PO Q6H PRN post-op pain 10/30/23
clopidogrel 75 mg tablet (Plavix) 75 mg PO DAILY 30 days #30 tabs 12/07/23
Vital Signs and Labs
-
Vital Signs and Labs:
Vital Signs
Temp Pulse Resp BP Pulse Ox
36.7 C 73 24 177/52 97
04/11/24 13:02 04/11/24 17:00 04/11/24 17:00 04/11/24 17:00 04/11/24 16:30
Lab Results
04/11/24 14:17
04/11/24 14:17
Sodium 132 mmol/L (135-145) L 04/11/24 14:17
Potassium 4.1 mmol/L (3.5-5.1) 04/11/24 14:17
BUN 12 mg/dl (7-17) 04/11/24 14:17
Glucose 103 mg/dl (70-99) H 04/11/24 14:17
Calcium 9.4 mg/dl (8.4-10.2) 04/11/24 14:17
Home Medications
-
Home Medications
amlodipine 2.5 mg tablet 2.5 mg PO DAILY 07/18/18
calcium 500 mg (as carbonate)-vitamin D3 10 mcg (400 unit) tablet (Calcium 500 With D) 1 tab PO DAILY 10/28/23
calcium polycarbophil 625 mg tablet (FiberCon) 1,250 mg PO DAILY 10/28/23
cholecalciferol (vitamin D3) 50 mcg (2,000 unit) capsule (Vitamin D3) 50 mcg PO DAILY 10/28/23
citalopram 20 mg tablet 20 mg PO DAILY 10/28/23
lisinopril 40 mg tablet 40 mg PO DAILY 10/28/23
metoprolol succinate 100 mg tablet,extended release 24 hr 100 mg PO DAILY 10/28/23
rosuvastatin 20 mg tablet 20 mg PO DAILY 10/28/23
vibegron 75 mg tablet (Gemtesa) 75 mg PO DAILY 10/28/23
acetaminophen 500 mg tablet 1,000 mg PO Q6HPRN PRN mild pain/headache 10/29/23
clopidogrel 75 mg tablet (Plavix) 75 mg PO DAILY 30 days #30 tabs 12/07/23
cyanocobalamin (vitamin B-12) 1,000 mcg tablet 1,000 mcg PO DAILY 04/11/24
--- NOTE | 2024-04-11 17:03 | HPS.HSE ---
Family Physician
-
Family Physician: Angelica Diez MD
Chief Complaint
-
trouble speaking
History of Present Illness
83-year-old female past medical history of TIAs, CVA 11 years ago with some residual speech/swallowing difficulty, hypertension, hypercholesteremia, diabetes, depression, anxiety, BPPV, migraines, osteoarthritis, presenting after she had an episode
of aphasia at home. Symptoms started at 1030. Her daughter noticed that she had difficulty getting her words out. Symptoms lasted 20 to 40 minutes and resolved. Prior to that she did have loss of vision in her right peripheral vision only in her
right eye which resolved lasting 3 minutes. After the difficulty with speech she had some numbness in her right hand which since resolved. Denies headache. Denies motor weakness or tingling. She did not want to come to the hospital and went to
physical therapy and then called her primary who told her to come to the hospital.
She recently had similar symptoms earlier this month.
Denies smoking or alcohol use.
Her mother also had TIAs.
Medical History
Past Medical History
Past Medical History: Reports Other (TIAs, CVA 11 years ago with some residual speech/swallowing difficulty, hypertension, hypercholesteremia, diabetes, depression, anxiety, BPPV, migraines, osteoarthritis)
Past Surgical History: Reports Other (Orthopedic (Left knee arthroscopy, right shoulder adhesion removal) and Tonsilectomy)
Social History
Tobacco: Non-smoker
Alcohol: None
Drug: None
Family History
Family History: Not pertinent
Allergies / Home Medications
Allergies reflects when Allergies were last updated in [facility].
Home Medications with original date entered in [facility]
Allergy/Medication List:
Allergies
Allergy/AdvReac Type Severity Reaction Status Date / Time
latex [Latex] Allergy Mild Rash Verified 04/11/24 13:06
lactase [From Lactaid] Allergy gi upset Verified 04/11/24 13:06
Home Medications
amlodipine 2.5 mg tablet 2.5 mg PO DAILY 07/18/18
calcium 500 mg (as carbonate)-vitamin D3 10 mcg (400 unit) tablet (Calcium 500 With D) 1 tab PO DAILY 10/28/23
calcium polycarbophil 625 mg tablet (FiberCon) 1,250 mg PO DAILY 10/28/23
cholecalciferol (vitamin D3) 50 mcg (2,000 unit) capsule (Vitamin D3) 50 mcg PO DAILY 10/28/23
citalopram 20 mg tablet 20 mg PO DAILY 10/28/23
lisinopril 40 mg tablet 40 mg PO DAILY 10/28/23
metoprolol succinate 100 mg tablet,extended release 24 hr 100 mg PO DAILY 10/28/23
rosuvastatin 20 mg tablet 20 mg PO DAILY 10/28/23
vibegron 75 mg tablet (Gemtesa) 75 mg PO DAILY 10/28/23
acetaminophen 500 mg tablet 1,000 mg PO Q6HPRN PRN mild pain/headache 10/29/23
clopidogrel 75 mg tablet (Plavix) 75 mg PO DAILY 30 days #30 tabs 12/07/23
cyanocobalamin (vitamin B-12) 1,000 mcg tablet 1,000 mcg PO DAILY 04/11/24
Review of Systems
-
History Source: Patient
A 12 point ROS was completed and negative except as noted: Yes
Constitutional: Reports No Symptoms
EENT: Reports No Symptoms
Respiratory: Reports No Symptoms
Cardiac: Reports No Symptoms
Abdomen/GI: Reports No Symptoms
: Reports No Symptoms
Musculoskeletal: Reports No Symptoms
Skin: Reports No Symptoms
Neurological: Reports See HPI
Endocrine: Reports No Symptoms
Hematologic/Lymphatic: Reports No Symptoms
Psych: Reports No Symptoms
Physical Exam
Vital Signs
Vital Signs
Temp Pulse Resp BP Pulse Ox
98.0 F 69 25 159/108 98
04/11/24 13:02 04/11/24 15:15 04/11/24 15:15 04/11/24 15:00 04/11/24 14:30
Physical Exam
General: Well Developed, Well Nourished and No Apparent Distress
HEENT: NormoCephalic, Moist mucous membranes and Atraumatic
Respiratory: Clear
Cardiac: S1/S2 and Regular Rhythm; No Murmur or Rub
GI: Soft, Non Tender, Non Distended and Normal Bowel Sounds; No Organomegaly
Rectal: Deferred by Provider
Musculoskeletal: No Clubbing, No Cyanosis and No Edema
Skin: No Rash
Neuro: Nonfocal/grossly intact
Laboratory Results
-
04/11/24 14:17
04/11/24 14:17
Laboratory Results
Total Bilirubin 0.4 mg/dl (0.2-1.3) 04/11/24 14:17
AST 26 U/L (14-36) 04/11/24 14:17
ALT 15 U/L (0-35) 04/11/24 14:17
Alkaline Phosphatase 83 U/L (38-126) 04/11/24 14:17
Data Reviewed
-
Lab Data: Labs Reviewed by me
Old Records: Reviewed
Impression/Plan
-
IMPRESSION:
PLAN:
# TIA
# History of TIAs
# History of CVA 11 years ago with residual swallowing/speaking difficulty
-No symptoms currently
-CT head shows no acute abnormality
-Check MRI/MRA head and neck
-Neurology consulted
-Continue Plavix
# Uncontrolled hypertension secondary to TIA
# Essential hypertension
-Continue to monitor
-Continue amlodipine
-Continue lisinopril
-Continue metoprolol
Hypercholesterolemia
-Continue statin
Type 2 diabetes
-Not on medication
Anxiety/depression
-Continue citalopram
BPPV
History of migraines
Osteoarthritis
DNR/DNI
DVT prophylaxis�SCDs
Diabetic diet
[2024-04-11] MEDS: PLAVIX PO (18:49)
[2024-04-11] MEDS: LOW STRENGTH ASPIRIN 81 MG PO (18:49)
[2024-04-11 19:28] LABS: HDL Cholesterol 50 mg/dl; LDL Cholesterol, Calculated 73 mg/dl; Total Cholesterol 145 mg/dl (50-199); Triglyceride 114 mg/dl (10-149); Very Low Density Lipoprotein 22 mg/dl (0-30)
[2024-04-11 20:00] LABS: TSH Reflex To Free T4 2.37 uIU/ml (0.47-4.68)
--- NOTE | 2024-04-11 20:10 | PTCARENOTE ---
Patient admitted from the ED. Patient ambulated into room with single point cane. Patient AAOx3. Patient is able to state needs. Call ervin within reach. Will continue with current plan.
[2024-04-12 03:00] VITALS: BP 149/69
[2024-04-12 06:34] VITALS: BMI 27.8
[2024-04-12 07:05] LABS: Hematocrit 33.5 % (37.0-47.0); Hemoglobin 11.4 g/dL (12.0-16.0); Mean Corpuscular Hgb 30.2 pg (27.0-31.0); Mean Corpuscular Volume 88.9 fL (81.0-99.0); Mean Platelet Volume 11.5 fL (7.4-10.4); Platelet Count 138 10^3/uL (130-400); Red Blood Cell Count 3.77 10^6/uL (4.20-5.40); Red Cell Dist. Width 12.1 % (11.5-14.5); White Blood Cell Count 3.9 10^3/uL (4.8-10.8)
--- NOTE | 2024-04-12 07:29 | W.PN.HOSP.TC ---
Addendum entered and electronically signed by Saniya Mayfield MD 04/12/24 22:19:
I saw and evaluated the patient independently. I reviewed the resident�s note and agree with findings and plan as documented by Dr. Dale.
GENERAL: well developed, well nourished, female in no apparent distress
HEENT: NC/AT
HEART: regular rate and rhythm, +S1, +S2
LUNGS : clear to auscultation bilaterally
ABDOM: soft, nontender, nondistended, + bowel sounds
EXT: no cyanosis, clubbing, or edema
NEUROLOGIC: some slurred speech and using cane for balance
TIA with HX of previous TIA/CVA--initial head CT neg, EEG neg, MRI/MRAs neg for any acute stroke--long discussion with pt/daughter re: VerifyNOW tests, BP management, medications--would continue asa/plavix and check verify now for both asa/plavix to
determine which one is better to take--cont statin--follow up with neuro and PCP for test results--apprec neuro input
Uncontrolled Hypertension-- pressures in the 160s on arrival. Current medication doses are Lisinopril 40mg, Amlodipine 2.5mg and Metoprolol Succinate 100mg QD- Will increase to Amlodipine 5mg for better bp control and have patient take it at night,
cont other 2 meds in the AM and follow up outpatient with primary care for further titration and management--perhaps wide swings in BP causing TIAs
Hyperlipidemia-- continue with statin, no changes during obs
T2DM-- not currently on medication, A1C% 5.9
ok for d/c
Original Note:
Today's Communication/Plan
-
OK to d/c. OP labs VerifyNow for aspirin/plavix. Amlodipine 5mg and follow up w/ PCP & Neurology
Assessment / Plan
Assessment / Plan
83 year old F w/ hx of CVA in 2013 w/ residual swallowing/speaking difficulty (on Plavix), h/o TIAs, uncontrolled hypertension, hypercholesterolemia, T2DM, Anxiety, Depression.
#TIA
#History of TIAs
#History of CVA
- presented to ED w/ symptoms of aphasia and weakness which have since resolved without intervention. CT head, MRI brain, head/neck MRA all negative for acute ischemic pathology. Carotid doppler <50% occlusion in BL carotids.
- Was on Plavix at home, daughter at bedside revealed that she was on Aspirin for only a few days before it was discontinued due to fall risk several months ago. Explained to patient and daughter that if she is still having TIAs on Plavix then she
may either have a resistance to it or she may just need the DAPT, despite fall risk. Will send for outpatient labs VerifyNow Aspirin/VerifyNow PRU but will discharge on both aspirin and plavix to build up levels for accurate lab testing. Once
results come back, medication regimen will be adjusted. Close f/u with PCP encouraged.
#Uncontrolled Hypertension
- pressures in the 160s on arrival. Current medication doses are Lisinopril 40mg, Amlodipine 2.5mg and Metoprolol Succinate 100mg QD
- Will increase to Amlodipine 5mg for better bp control and follow up outpatient with primary care for further titration and management. Instructed to take Amlodipine in the pm and Metoprolol/Lisinopril in the AM
#Hypercholesterolemia
#Hyperlipidemia
- continue with statin, no changes during obs
#T2DM
- not currently on medication, A1C% 5.9
Anticipated Discharge: Today
Subjective/Interval History
-
Feeling well this morning, at or near baseline. Per patient she has no complaints.
Objective Data
-
Labs:
Laboratory Results
04/12/24
06:16
WBC 3.9 L
Hgb 11.4 L
Hct 33.5 L
Plt Count 138
Sodium Pending
Potassium Pending
Chloride Pending
Carbon Dioxide Pending
BUN Pending
Creatinine Pending
Glucose Pending
Calcium Pending
Vital Signs:
Vital Signs
Temp Pulse Resp BP Pulse Ox
97.8 F 70 1 149/69 94
04/12/24 03:00 04/12/24 03:00 04/12/24 03:00 04/12/24 03:00 04/12/24 03:00
Review of Systems
-
History Source: Patient
Constitutional: Reports No Symptoms
EENT: Reports No Symptoms Reported
Respiratory: Reports No Symptoms
Cardiac: Reports No Symptoms
Abdomen/GI: Reports No Symptoms
Genitourinary: Reports No Symptoms
Musculoskeletal: Reports No Symptoms
Neuro: Reports No Symptoms
Physical Exam
-
General: Well Developed, Well Nourished, No Apparent Distress and Comfortable
HEENT: Normocephalic, Atraumatic, Moist Mucous Membranes, Anicteric and PERRLA
Respiratory: Clear to Auscultation and Non Labored Respirations; Negative Wheezes, Rales or Rhonchi
Cardiac: Regular Rhythm and S1/S2; Negative Murmur
GI: Soft, Nontender, Nondistended and Normal Bowel Sounds
Genito-urinary: Deferred by me
Musculoskeletal: No Clubbing, No Cyanosis and No Edema
Neuro: Awake, Alert, Oriented, No Motor Deficits and Nonfocal/Grossly Intact
Psych: Calm
[2024-04-12 07:49] VITALS: BP 162/75
[2024-04-12 08:37] LABS: Blood Urea Nitrogen 15 mg/dl (7-17); Calcium 8.8 mg/dl (8.4-10.2); Carbon Dioxide 23 mmol/L (22-30); Chloride 100 mmol/L (98-107); Estimated Creatinine Clearance 63 ml/min; Glucose 101 mg/dl (70-99); HDL Cholesterol 45 mg/dl; LDL Cholesterol, Calculated 68 mg/dl; Potassium 4.1 mmol/L (3.5-5.1); Sodium 135 mmol/L (135-145); Total Cholesterol 126 mg/dl (50-199); Triglyceride 68 mg/dl (10-149); Very Low Density Lipoprotein 13 mg/dl (0-30); eGFR > 60.00
[2024-04-12 09:39] LABS: Glycohemoglobin (HgbA1c) 5.9 % (4.0-5.6)
[2024-04-12] MEDS: TOPROL XL 100 MG PO (10:16)
[2024-04-12] MEDS: FIBERCON 1250 MG PO (10:16)
[2024-04-12] MEDS: NORVASC 2.5 MG PO ×2 (10:16→16:57)
[2024-04-12] MEDS: ZESTRIL 40 MG PO (10:17)
[2024-04-12] MEDS: PLAVIX 75 MG PO (10:17)
[2024-04-12] MEDS: VITAMIN B-12 1000 MCG PO (10:17)
[2024-04-12] MEDS: CELEXA 20 MG PO (10:17)
[2024-04-12] MEDS: OSCAL 500 + D 500 MG PO (10:17)
[2024-04-12] MEDS: LOW STRENGTH ASPIRIN 81 MG PO (10:17)
[2024-04-12] MEDS: VITAMIN D3 (cholecalciferol) 50 MCG PO (10:17)
[2024-04-12 11:07] VITALS: BP 168/66
--- NOTE | 2024-04-12 11:26 | EEGC.RPT ---
Continuous EEG Report
Recording
Start Date of Data Reviewed: 04/12/24
Done with Video Recording: Yes
Electrocardiogram: Unremarkable
Report
TECHNICAL REMARKS:��This is a technically satisfactory eighteen channel record employing 21 disc electrodes applied according to a measured international 10-20 electrode placement system.��There were no significant technical difficulties.��The study
was done on a [employer] System.
�
CLINICAL INFORMATION: This is an 83-year-old woman with recurrent aphasia. This study was requested to look for epileptiform activity.
STUDY DURATION:� 28 min,�42 secs
�
MEDICATIONS: Citalopram
REPORT: �At the onset of the EEG, the patient is awake. The background activity consists of 9-10 Hz, persistent, posteriorly dominant, moderate amplitude, symmetric, and rhythmic activity. Anteriorly, it consists of a mixture of low voltage
indeterminate activity and 20-25 Hz, persistent, low amplitude, symmetric, and rhythmic activity. Intermittent generalized theta activity activity lasting for 1-2 seconds with maximal amplitude in the bifrontal area is present. Stepwise intermittent
photic stimulation (1-31 Hz) does not induce any abnormalities. Hyperventilation is not performed. Drowsiness is characterized by low amplitude mixed frequency activity, roving eye movements, and decreased eye blinking and muscle artifact.
�
IMPRESSION: �This is an abnormal awake and drowsy EEG due to an intermittent diffuse slowing indicating the presence of a mild encephalopathy, but nonspecific in terms of etiology. There is no evidence of focal slowing or epileptiform activity.
--- NOTE | 2024-04-12 15:22 | CM ---
Addendum entered by Ciara Nguyen 04/12/24 17:28:
Patient daughter here and reviewed discharge planning with Physician and CM. Patient confirmed [facility] and physician is Dr. Juárez. Patient daughter to transport patient home. OBS/PATTON form completed and signed form placed on chart.
Original Note:
Patient seen at bedside. CM reviewed record, pt admitted observation status due to TIA, OBS form provided to patient. Pt states she lives with spouse and son in a 2 story home with second floor set up. Pt denies VN/DME/SNF. Patient PCP is
Chary and she uses the [facility]. CM will continue to follow for discharge planning needs.
Plan: D/C to home when medically stable.
[2024-04-12 15:26] VITALS: BP 142/70
--- NOTE | 2024-04-12 17:31 | CM ---
Patient daughter here and reviewed discharge planning with Physician and CM. Patient confirmed [facility] and physician is Dr. Juárez. Patient daughter to transport patient home. OBS/PATTON form completed and signed form placed on chart. Patient lives alone
in 2 story home, no DME at home. Patient uses the [facility] at [facility] and plan is for discharge home with family supports.
Plan d/c to home with family supports.
--- NOTE | 2024-04-13 18:06 | W.DCSUMMARY ---
Addendum entered and electronically signed by Saniya Mayfield MD 04/13/24 18:40:
Read, reviewed, and agree. See same day progress note for additional details. Time spent coordinating care, DC planning, review of DC plan of care with resident, transition of care, review of records in EMR, med rec, consults, notes, d/w
consultants, nursing, family, and CM = 45 minutes
Original Note:
Discharge Summary
Discharge Data
Date of Admission: 04/11/24
Date of Discharge: 04/12/24
Total time spent discharging patient (in min): 45
-
Pending Results: No
Hospital Course
Discharging Physician : Dr. Homar Dale, Dr. Saniya Mayfield
Disposition : Home
Primary care physician : Lindsey Mars
Principal Discharge diagnosis : TIA
Chronic Discharge diagnosis : History of prior CVA/TIAs, uncontrolled hypertension, hyperlipidemia, type 2 diabetes mellitus, anxiety/depression
Hospital Course :
Saniya Thornton presented to the [facility] on 04/11/2023 with symptoms of aphasia, transient vision loss in the right eye, and numbness in right hand which was said to have resolved on arrival to ED. She was continued on her home Plavix. CT head/neck
was done which showed no acute abnormalities (report below). Neurology consult was placed. Her blood pressures were elevated in the ED over night but came down again the AM. Lab work was done which included CBC, CMP, Lipid Panel, TSH, Hemoglobin
A1C%, PT-INR. Hematology and chemistry were all grossly normal. Hgb A1C% was in prediabetic range. Further imaging (MRI brain, MRA of the c[place] of [place], MRA of the head and neck, and Cerebrovascular US) showed no acute process. She was diagnosed
with TIA. Further discussion was had at bedside regarding the following:
- Given persistently elevated blood pressures, decision was made to increase Amlodipine from 2.5mg daily to 5mg daily.
- Patient's recurring TIA symptoms are thought to be due to changes in blood pressure from taking her medication at the same time. Advised to try splitting medication, taking Amlodipine at night and Lisinopril/Metoprolol in the AM for more even BP
control.
- Given history of recurring TIAs on Plavix, discussion was had about adding Aspirin for DAPT. However, daughter and patient expressed concern about bleeding risk from falls while on DAPT. Decision was made to send for VerifyNow Aspirin & VerifyNow
PRU testing to confirm efficacy of both antiplatelet agents so that they may decide which one (or both) they wish to continue in the future.
Mrs. Thornton is to follow up with neurologist Dr. Alvarado and her PCP Dr. Mars. A reference was given for a psychiatrist Dr. Tovar as an outpatient for raised concerns about increasing citalopram dosing.
Important imaging findings :
CT Head W/o Iv Contrast:
1. No CT evidence for acute intracranial hemorrhage or transcortical infarct.
2. Severe white matter leukoaraiosis in the frontal and parietal lobes.
3. Small chronic periventricular white matter infarcts in the left frontal lobe.
4. Small chronic lacunar infarcts in the left thalamus.
5. Mild vertebrobasilar dolichoectasia.
6. Mild diffuse cerebral and cerebellar volume loss.
US Cerebrovascular:
RIGHT: Calcified plaque is identified in the carotid bulb. Carotid velocity measurements on this examination are most consistent with less than 50% internal carotid artery stenosis. Vertebral artery flow is antegrade.
LEFT: Calcified plaque is identified in the carotid bulb. Carotid velocity measurements on this examination and are most consistent with less than 50% internal carotid artery stenosis. Vertebral artery flow is antegrade.
MR Brain Without Contrast:
No focal area of abnormal restricted diffusion is identified, with no evidence of a focal area of acute to subacute infarction.
There is no evidence of intracranial mass lesion or mass effect, with no midline shift.
Mild to moderate atrophy in this 83-year-old patient. There is moderate to severe leukomalacia, confluent in the periventricular regions.
Small old white matter infarcts are present, which appear stable. There also appear to be small foci of CSF signal intensity within the cerebellar hemispheres bilaterally, suggesting small old cerebellar infarcts.
There is no evidence of a large cortical-based old infarct.
The callosal angle appears normal, and findings are not considered highly suggestive of normal pressure hydrocephalus.
The craniocervical junction appears normal with no evidence for Chiari malformation. No abnormality of the visualized pituitary gland.
There is evidence of previous bilateral cataract surgery.
The frontal sinuses are aplastic. Mild to moderate patchy mucosal thickening of the ethmoid sinuses. The rest of the visualized paranasal sinuses appear clear. The mastoid air cells appear clear.
MR angiography of the c[place] dehe of [place]/intracranial circulation:
Aplastic A1 segment of the left anterior cerebral artery, considered normal variant. No evidence for high-grade stenosis or large vessel occlusion of the intracranial circulation. No MR angiographic evidence for intracranial aneurysm.
MR angiography of the neck with contrast:
No evidence for hemodynamically significant stenosis of the common carotid arteries, carotid bulbs, or proximal internal carotid arteries bilaterally. Aplastic A1 segment of the left anterior cerebral artery, considered normal variant. No
significant narrowing of the vertebral or basilar arteries.
Discharge Plan
-
Patient Disposition: Home (Routine Discharge)
Discharge Diagnosis/Procedures: TIA
Condition: Good
Diet: As tolerated
Activity: As tolerated
Driving Restrictions: As prior to admission
Blood Work: Will obtain labs outpatient VerifyNow Aspirin & VerifyNow PRU, with results to Dr. Alvarado (neurology) and Dr. Mars (Family Medicine)
Referrals:
Lindsey Mars MD [Active] -
Sujit Alvarado MD [Active] -
Angelica Diez MD [Family Provider] -
Glendy Tovar MD [Active] -
Additional Discharge Medication Instructions: Take Lisinopril 40mg & Metoprolol XL 100mg at night and Amlodipine 5mg in the morning.
Prescriptions:
New
amlodipine 5 mg Tablet
5 mg PO DAILY 30 Days Qty: 30 0RF
aspirin 81 mg Tablet,Chewable
81 mg PO DAILY 30 Days Qty: 30 1RF
Continued
cholecalciferol (vitamin D3) [Vitamin D3] 50 mcg (2,000 unit) Capsule
50 mcg PO DAILY
Gemtesa 75 mg Tablet
75 mg PO DAILY
acetaminophen 500 mg Tablet
1,000 mg PO Q6HPRN PRN (Reason: mild pain/headache)
metoprolol succinate 100 mg Tablet Extended Release 24 Hr
100 mg PO DAILY Qty: 0 0RF
cyanocobalamin (vitamin B-12) 1,000 mcg Tablet
1,000 mcg PO DAILY Qty: 0 0RF
clopidogrel [Plavix] 75 mg tablet
75 mg PO DAILY 30 Days Qty: 30 0RF
citalopram 20 mg Tablet
20 mg PO DAILY Qty: 0 0RF
calcium polycarbophil [FiberCon] 625 mg Tablet
1,250 mg PO DAILY Qty: 0 0RF
lisinopril 40 mg Tablet
40 mg PO DAILY Qty: 0 0RF
rosuvastatin 20 mg Tablet
20 mg PO DAILY Qty: 0 0RF
calcium carbonate-vitamin D3 [Calcium 500 With D] 500 mg-10 mcg (400 unit) Tablet
1 tab PO DAILY Qty: 0 0RF
Discontinued
amlodipine 2.5 MG tablet
2.5 mg PO DAILY
Discharge Orders:
Discharge Patient (As Directed); Ordered 04/12/24
Ordered By: Homar Dale
Discharge Date and Time
Discharge Date/Time: 04/12/24 18:55
Print Language: [facility]
== END 2024-04-12 18:55 | disposition home or self-care (01) ==
LOC: 4 WEST ACU 18:15
PROVIDERS: Psychiatry & Neurology Neurology; ADMITTING PHYSICIAN Hospitalist; ATTENDING PHYSICIAN Internal Medicine; EMERGENCY PHYSICIAN Emergency Medicine; FAMILY PHYSICIAN Family Medicine
DX: G45.9 Transient cerebral ischemic attack, unspecified (principal); R47.01 Aphasia; I10 Essential (primary) hypertension; G93.40 Encephalopathy, unspecified; H53.121 Transient visual loss, right eye; E78.00 Pure hypercholesterolemia, unspecified; E11.9 Type 2 diabetes mellitus without complications; F32.9 Major depressive disorder, single episode, unspecified; F41.1 Generalized anxiety disorder; F32.A Depression, unspecified; I69.321 Dysphasia following cerebral infarction; I69.320 Aphasia following cerebral infarction; M19.90 Unspecified osteoarthritis, unspecified site; M81.0 Age-related osteoporosis without current pathological fracture; E55.9 Vitamin D deficiency, unspecified; I67.81 Acute cerebrovascular insufficiency; G43.909 Migraine, unspecified, not intractable, without status migrainosus; N32.81 Overactive bladder; Z79.02 Long term (current) use of antithrombotics/antiplatelets; Z79.82 Long term (current) use of aspirin; Z79.51 Long term (current) use of inhaled steroids; Z91.040 Latex allergy status; Z91.011 Allergy to milk products; Z66 Do not resuscitate; Z96.611 Presence of right artificial shoulder joint; Z96.652 Presence of left artificial knee joint; Z60.2 Problems related to living alone
CPT/HCPCS: 70450; 70544; 70548; 70551; 80048; 80053; 80061; 83036; 84443; 85025; 85027; 93005; 93880; 95816; 99285; A9585; G0378

== ENCOUNTER → 2024-04-16 07:28 | Outpatient (REF) | payer MEDICARE, SELFPAY ==
[2024-04-16 09:11] LABS: VerifyNow Aspirin 408 ARU; VerifyNow PRU 247 PRU (180-376)
== END ==
LOC: REG 07:28
PROVIDERS: ATTENDING PHYSICIAN Internal Medicine; FAMILY PHYSICIAN Family Medicine; REFERRING PHYSICIAN Specialist
DX: G45.9 Transient cerebral ischemic attack, unspecified (principal)
CPT/HCPCS: 36415; 85576

== ENCOUNTER → 2024-06-06 12:29 | Outpatient (REF) | payer MEDICARE, SELFPAY ==
[2024-06-06 13:03] LABS: % Basophils 0.4 % (0-2); % Eosinophils 1.1 % (0-6); % Immature Granulocytes 0.4 % (0-0.5); % Lymphocytes 29.5 % (20.5-51.1); % Neutrophils 62.6 % (42.2-75.2); Absolute Eosinophils 0.1 10^3/uL (0-0.7); Absolute Lymphocytes 1.4 10^3/uL (1.2-3.4); Absolute Monocytes 0.3 10^3/uL (0.1-0.6); Absolute Neutrophils 2.9 10^3/uL (1.4-6.5); Hematocrit 36.7 % (37.0-47.0); Hemoglobin 11.6 g/dL (12.0-16.0); Mean Corp Hgb Conc. 31.6 g/dL (33.0-37.0); Mean Corpuscular Hgb 29.5 pg (27.0-31.0); Mean Corpuscular Volume 93.4 fL (81.0-99.0); Mean Platelet Volume 11.3 fL (7.4-10.4); Nucleated Red Blood Cells % 0 %; Platelet Count 176 10^3/uL (130-400); Red Blood Cell Count 3.93 10^6/uL (4.20-5.40); White Blood Cell Count 4.7 10^3/uL (4.8-10.8)
[2024-06-06 14:41] LABS: TSH Reflex To Free T4 1.67 uIU/ml (0.47-4.68)
[2024-06-07 10:51] LABS: Glycohemoglobin (HgbA1c) 5.8 % (4.0-5.6)
== END ==
LOC: CLAB 12:29
PROVIDERS: ATTENDING PHYSICIAN Family Medicine
DX: I10 Essential (primary) hypertension (principal); Z79.899 Other long term (current) drug therapy; R73.03 Prediabetes
CPT/HCPCS: 36415; 83036; 84443; 85025

== ENCOUNTER → 2024-09-10 07:14 | Outpatient (REF) | payer MEDICARE, SELFPAY ==
[2024-09-10 08:59] LABS: ALT (SGPT) 15 U/L (0-35); AST (SGOT) 22 U/L (14-36); Albumin 4.4 g/dl (3.5-5.0); Alkaline Phosphatase 74 U/L (38-126); Blood Urea Nitrogen 21 mg/dl (7-17); Calcium 9.5 mg/dl (8.4-10.2); Carbon Dioxide 27 mmol/L (22-30); Chloride 105 mmol/L (98-107); Glucose 94 mg/dl (70-99); HDL Cholesterol 52 mg/dl; LDL Cholesterol, Calculated 55 mg/dl; Sodium 140 mmol/L (135-145); Total Bilirubin 0.4 mg/dl (0.2-1.3); Total Cholesterol 125 mg/dl (50-199); Total Protein 7.2 g/dl (6.3-8.2); Triglyceride 92 mg/dl (10-149); Very Low Density Lipoprotein 18 mg/dl (0-30); eGFR > 60.00
== END ==
LOC: REG 07:14
PROVIDERS: ATTENDING PHYSICIAN Internal Medicine; FAMILY PHYSICIAN Family Medicine
DX: I63.9 Cerebral infarction, unspecified (principal)
CPT/HCPCS: 36415; 80053; 80061

== ENCOUNTER → 2024-12-08 12:48 | Outpatient (REF) | payer MEDICARE, SELFPAY | LOC: RCS 12:48 | PROVIDERS: ATTENDING PHYSICIAN Internal Medicine; FAMILY PHYSICIAN Family Medicine | DX: I35.1 Nonrheumatic aortic (valve) insufficiency (principal); I10 Essential (primary) hypertension; I77.810 Thoracic aortic ectasia | CPT/HCPCS: 93306 ==